=== PATIENT | male | born 2000 | race Caucasian/White ===

== ENCOUNTER → 2018-03-19 23:08 | Emergency (ER) | payer OTHER ==
--- NOTE | 2018-03-20 00:07 | ED ---
Substance Abuse/Use - HPI Summary HPI Summary: Pt is a 17 year old M presenting to the ED with a chief complaint of intoxication. Pt's friends do not know how much he drank, he vomited earlier, and is presently asleep. The pt is responsive to his name. Unable to obtain full history due to intoxication. - History Of Current Complaint Chief Complaint: EDSubstanceAbuse Stated Complaint: ETOH Time Seen by Provider: 03/19/18 23:56 Hx Obtained From: Patient Hx From Patient Unobtainable Due To: Other - asleep/intoxicated Onset/Duration of Drug/ETOH Abuse: Hours Ingestion History: Type/Name Of Drug - EtOH Overdose Characteristics: Oral Severity Initially: Moderate Severity Currently: Moderate Character: Other - asleep Aggravating Factor(s): Nothing Alleviating Factor(s): Nothing Associated Signs And Symptoms: Negative - Allergies/Home Medications Allergies/Adverse Reactions: Allergies Allergy/AdvReac Type Severity Reaction Status Date / Time No Known Allergies Allergy Verified 03/19/18 23:52 Home Medications: Home Medications NK [No Home Medications Reported] 03/19/18 [History Confirmed 03/19/18] PMH/Surg Hx/FS Hx/Imm Hx Previously Healthy: Yes Cardiovascular History: Denies: Hx Hypertension Respiratory History: Denies: Hx Chronic Obstructive Pulmonary Disease (COPD) - Immunization History Date of Tetanus Vaccine: assumed utd Date of Influenza Vaccine: unk Infectious Disease History: Unable to Obtain/Confirm Infectious Disease History: Denies: Traveled Outside the [place] in Last 30 Days - Family History Known Family History: Negative: Renal Disease - Social History Alcohol Use: Occasionally Substance Use Type: Reports: None Smoking Status (MU): Light Every Day Tobacco Smoker Review of Systems Negative: Fever Positive: Vomiting All Other Systems Reviewed And Are Negative: Yes Physical Exam - Summary Physical Exam Summary: VITAL SIGNS: Reviewed. GENERAL: Patient is a well-developed and nourished male who is lying comfortable in the stretcher. Patient is not in any acute respiratory distress. HEAD AND FACE: No signs of trauma. No ecchymosis, hematomas or skull depressions. No sinus tenderness. EYES: PERRLA, EOMI x 2, No injected conjunctiva, no nystagmus. EARS: Hearing grossly intact. Ear canals and tympanic membranes are within normal limits. MOUTH: Oropharynx within normal limits. NECK: Supple, trachea is midline, no adenopathy, no JVD, no carotid bruit, no c- spine tenderness, neck with full ROM. CHEST: Symmetric, no tenderness at palpation LUNGS: Clear to auscultation bilaterally. No wheezing or crackles. CVS: Regular rate and rhythm, S1 and S2 present, no murmurs or gallops appreciated. ABDOMEN: Soft, non-tender. No signs of distention. No rebound no guarding, and no masses palpated. Bowel sounds are normal. EXTREMITIES: FROM in all major joints, no edema, no cyanosis or clubbing. NEURO: Alert and oriented x 3. No acute neurological deficits. Responsive to loud verbal stimuli by nodding his head. SKIN: Dry and warm Triage Information Reviewed: Yes Vital Signs On Initial Exam: Initial Vitals Temp Pulse Resp BP Pulse Ox 97.0 F 52 16 117/68 97 03/19/18 23:14 03/19/18 23:14 03/19/18 23:14 03/19/18 23:14 03/19/18 23:14 Vital Signs Reviewed: Yes Diagnostics - Vital Signs Vital Signs Temp Pulse Resp BP Pulse Ox 03/19/18 23:14 97.0 F 52 16 117/68 97 - Laboratory Lab Statement: Any lab studies that have been ordered have been reviewed, and results considered in the medical decision making process. Re-Evaluation - Re-Evaluation 1 Re-Evaluation Time: 02:45 Change: Improved Comment: Pt is awake and alert and would like to go home. The pt's friend has been called to give him a ride home. Course/Dx - Course Course Of Treatment: Pt is a 17 y/o M presenting to the ED brought in by EMS for intoxication. His friends said he was vomiting, he is no longer vomiting and is now asleep. He is responsive to loud verbal stimuli by nodding his head. Unable to obtain full hx due to intoxication. 0245 - Pt is stable and will be sent home with friend. - Diagnoses Provider Diagnoses: Alcohol intoxication Discharge - Sign-Out/Discharge Documenting (check all that apply): Patient Departure - Discharge Plan Condition: Stable Disposition: HOME - Attestation Statements Document Initiated by Scribe: Yes Documenting Scribe: Aliya Leung Provider For Whom Scribe is Documenting (Include Credential): Aretha Mena MD. Scribe Attestation: I, Aliya O'Alejandro, scribed for Aretha Mena MD. on 03/20/18 at 0252.
[2018-03-20 03:02] VITALS: BP 113/72
== END | disposition home or self-care (01) ==
LOC: ED 23:08
DX: F10.129 Alcohol abuse with intoxication, unspecified (principal); F17.200 Nicotine dependence, unspecified, uncomplicated
CPT/HCPCS: 99282